=== PATIENT | male | born 1955 | race Caucasian/White ===

== ENCOUNTER 2022-08-14 11:14 | Inpatient (IN) ==
[2022-08-14] MEDS ORDERED: 0.9 % SODIUM CHLORIDE 1,000 ML IV ONE ×2 (11:24→12:44)
[2022-08-14] MEDS ORDERED: ACETAMINOPHEN 325 MG TABLET PO ONE (11:28)
[2022-08-14 11:36] LABS: POC Calcium, Ionized 1.19 (1.16-1.32); POC Creatinine 0.4 (0.6-1.2); POC Potassium 3.8 (3.3-5.1)
--- NOTE | 2022-08-14 12:22 | XRay Report ---
INDICATION: fever dyspnea, poss pna TECHNIQUE: AP chest x-ray COMPARISON: Previous chest x-rays dated 01/25/2018, 12/26/2014 FINDINGS: Lungs:There is a focal mass in the left midlung, unchanged since 01/22/2018 and 12/26/2014. This is considered benign There are diffuse right lung infiltrates consistent with pneumonia. Atypical pneumonias should be considered. There is no dense consolidation. Follow-up radiographs are recommended. Heart, vascular:No significant cardiomegaly. Pulmonary vascularity is normal. No pulmonary edema or pulmonary congestion Mediastinum, sidra:No mediastinal widening. No hilar mass Pleura:No pleural fluid. No pleural-based mass or calcification Skeletal:Negative. IMPRESSION: 1. Diffuse right lung infiltrates consistent with pneumonia 2. Follow-up radiographs recommended 3. Stable benign nodule in left midlung Interpreted and Authenticated by: Jose Luis Echavarria 08/14/22
[2022-08-14] MEDS ORDERED: cefTRIAXone 1 GM VIAL IV ONE (12:34)
[2022-08-14] MEDS ORDERED: AZITHROMYCIN 500 MG in DEXTROSE 5% IN WATER 250 ML IV ONE (12:34)
--- NOTE | 2022-08-14 12:50 | Emergency Department Note ---
HPI General Chief complaint: Cold/Flu Symptoms Stated complaint: Cough Time Seen by Provider: 08/14/22 11:22 Source: patient Mode of arrival: wheelchair Limitations: no limitations History of Present Illness HPI Narrative: Narrative: 67-year-old male presents to the emergency department complaint of cough congestion generalized weakness and not feeling well patient states that he was seen by his primary care doctor Dr. Barros in about 2 weeks ago and was started on antibiotics filled them about 2 3 days ago but is still not getting any better. So they called the office and recommended coming here as they do not want to continue more antibiotics status post family was worried he was needing. He has had cough congestion has been having quite a productive cough of green mucus. Denying any other symptoms otherwise has no chest pain. Just complaining of just some mild cough and congestion no real shortness of breath. He has had off-and-on fevers. He does not remember what antibiotic he previously was taken Related Data Home Medications Medication Instructions Recorded Confirmed clopidogrel 75 mg tablet 75 mg PO QDAY 04/25/19 08/14/22 gabapentin 300 mg capsule 300 mg PO TIDP PRN Pain 08/14/22 08/14/22 Previous Rx's Medication Instructions Recorded levetiracetam 500 mg tablet 500 mg PO BID #180 tabs 01/25/18 olmesartan 40 mg tablet 40 mg PO QDAY #90 tabs 01/25/18 Allergies Allergy/AdvReac Type Severity Reaction Status Date / Time Penicillins AdvReac Unknown Skin Verified 08/14/22 11:15 reaction, nausea, vomiting, diarrhea Review of Systems ROS ROS Narrative: Narrative: All systems ED: reviewed and negative except as stated. [facility] Narrative Patient History Narrative: Narrative: Medical/Surgical/Family History All Active Problems (Updated 08/14/22 @ 14:09 by Kale Johnson DO) Epileptic seizure (Chronic) Cerebral artery occlusion with cerebral infarction (Chronic) CVA (cerebral vascular accident) (Chronic) COPD (chronic obstructive pulmonary disease) (Chronic) Confusion (Chronic) Convulsion, febrile (Chronic) Essential hypertension (Chronic) Peptic ulcer disease (Chronic 11/20/08) Lung nodule (Chronic 02/07/05) Sinusitis, chronic (Chronic) Thrombosis/embolism, venous (Chronic) Epilepsy (Chronic) Hepatitis C (Chronic) Recent unexplained weight loss (Chronic) Wrist sprain (Chronic) Bleeding (Chronic) Elevated PSA (Chronic) Pneumonia (Acute) Sepsis (Acute) Acute hyponatremia (Acute) Medical History Cerebral artery occlusion with cerebral infarction Confusion Convulsion, febrile COPD (chronic obstructive pulmonary disease) CVA (cerebral vascular accident) Elevated PSA Epilepsy Epileptic seizure Essential hypertension Long standing. Last reviewed by a Word Processing Supervisor in 2003. Hepatitis C serotype 3a, completed 2017, viral load 0 Hyposmolality and/or hyponatremia Influenza A Lung nodule (02/07/05) Followed by Dr. Campuzano, said to be stable Peptic ulcer disease (11/20/08) Gastro jejunal, acute Sinusitis, chronic Thrombosis/embolism, venous UTI (urinary tract infection) Surgical History History of angiography (09/07/19) History of bilateral cataract extraction History of endarterectomy common femoral artery - left Family History Sister Malignant neoplasm of ovary Father Cerebrovascular accident (CVA) Mother Aneurysm, Onset Age: 63 Hypertension Brother Non Hodgkin's lymphoma, Onset Age: 70 Other Cancer Social History Smoking Status: Former smoker Alcohol Intake Frequency: 0-2 drinks per day Substance Use: former substance user and marijuana Exam Narrative Narrative: Narrative: Vital signs noted General: Awake. Alert. No distress. Skin: Warm. Dry. No rash. HEENT: NCAT. PERRL. EOMI. No conjunctivitis. Membranes moist. Neck: Good ROM. No meningeal signs. No stridor. Cardiovascular: Tachycardic but regular.. Respiratory: No respiratory distress. Rhonchi heard in the right base otherwise normal breath sounds bilaterally. Gastrointestinal: Abdomen soft. No tenderness. No distention. Back: No deformity. No CVAT. Musculoskeletal: No tenderness. No swelling. No erythema. No edema. Good peripheral pulses x 4 Neurological: No focal neurological deficits observed. General Limitations: no limitations Course Vital Signs Vital signs: Vital Signs Temperature 100.1 F H 08/14/22 11:14 Pulse Rate 128 H 08/14/22 11:14 Respiratory Rate 25 H 08/14/22 11:14 Blood Pressure 109/82 08/14/22 11:14 Pulse Oximetry (%) 91 08/14/22 11:14 Oxygen Delivery Method Room Air 08/14/22 11:14 Temperature 100.1 F H 08/14/22 11:42 Pulse Rate 91 H 08/14/22 13:27 Respiratory Rate 18 08/14/22 13:27 Blood Pressure 132/78 08/14/22 13:27 Pulse Oximetry (%) 95 08/14/22 13:27 Oxygen Delivery Method Room Air 08/14/22 13:27 MDM MDM Narrative Medical decision making narrative: Narrative: Patient resents to the Emergency Department with shortness of breath. Reveal possible pneumonia and sepsis. Very low suspicion for PE or acute coronary syndrome as he has no chest pain. He has no risk factors for PE. I was worried about possibly sepsis most likely secondary to pneumonia based on his symptoms. Did get a Amina which is an influenza and COVID swabs these were interpreted by myself is negative. I also got CBC, chemistry, procalcitonin as well as urinalysis as well as blood cultures. I also ordered a chest x-ray. This was personally interpreted by myself and I see a right lower lobe infiltrate otherwise no other acute findings. Patient was given Tylenol to help with his fever. He also did meet criteria for severe sepsis as he also had a VBG lactate I interpreted it as an elevated lactate of 3.81 and a pH of 7.36 CO2 is normal at 40. I went ahead and gave patient the 30 mL/kg of IV fluids based on patient's ideal body weight of 68 kg. I also started patient on azithromycin IV as well as IV Rocephin to cover patient's most likely community-acquired pneumonia. I did read the radiology interpretation which does show right lower lobe pneumonia as well as a mass in the left lobe. Mass in the left lobe is not needed to be dealt with at this time and can be taken care of in the outpatient setting. Still awaiting labs analysis at this time patient most likely will need to be admitted. Patient does meet criteria for severe sepsis but there is no signs of septic shock as his vital signs have been stable. He is tachycardic but blood pressure has been normal. Patient's labs show a positive lactic acid. His CBC also interpreted by myself shows a white blood cell count of 17.9 hemoglobin stable at 11.4 does have a left shift. I also got a procalcitonin interpreted by myself is 0.35 which is elevated. Chemistry does show a hyponatremia. Patient will need to be admitted. I spoke with Dr. Norman the hospitalist who has agreed to admit the patient. Patient can be admitted in fair condition. Total critical care time of 31 min including performance of history and physical exam, review of results, re-examinations, time spent documenting, order processing specialist, review of old records, discussions with patient and family, discussions with fashion consultant sales(s), discussion with admitting physician, completion of admission/transfer paperwork. This does not include time for any separately documented procedures. Sepsis Sepsis Identified: Yes Time Zero: 1200 Lab Data 08/14/22 11:30 Labs: Lab Results 08/14/22 08/14/22 Range/Units 11:28 11:32 POC Hct 38.0 L (41-55) POC VBG pH 7.36 (7.32-7.42) POC VBG pCO2 at Temp 40.9 L (41-51) POC VBG pO2 24 L (25-40) POC VBG HCO3 23.3 L (24-28) POC VBG Total CO2 25.0 (25-29) POC Venous O2 Sat 40.0 (40-70) POC VBG Base Excess -2.0 (-2-2) VBG Lactic Acid 3.8 H (0.5-2) POC Sodium 127 L (133-145) POC Potassium 3.8 (3.3-5.1) POC Chloride 91 L (96-108) POC Total CO2 24.0 (22-30) POC BUN 7 (6-20) POC Creatinine 0.4 L (0.6-1.2) POC Glucose 143 H (70-105) POC WB Ioniz Calcium 1.19 (1.16-1.32) ED POC Tests ED POC Tests: INGE - Influenza A Negative INGE - Influenza B Negative INGE - SARS Antigen Negative Discharge Plan Patient/Caregiver Discharge Instructions Pt seen by BISCUITWARE BRUSHER/PA only: No Clinical Impression: Pneumonia, Sepsis, Acute hyponatremia Activity: increase activity as tolerated Patient Disposition: Xfer As Inpt ([facility]) Condition: Fair Follow up with: Reese James MD [Primary Care Provider] - Prescriptions: No Action levetiracetam 500 mg tablet 500 mg PO BID Qty: 180 3RF olmesartan 40 mg tablet 40 mg PO QDAY Qty: 90 3RF clopidogrel 75 mg tablet 75 mg PO QDAY gabapentin 300 mg capsule 300 mg PO TIDP PRN (Reason: Pain)
[2022-08-14 14:49] LABS: Basophils # (Auto) 0.07 K/mcL (0.00-0.30); Basophils % (Auto) 0.4 % (0.0-2.0); Eosinophils # (Auto) 0.11 K/mcL (0.00-0.70); Eosinophils % (Auto) 0.6 % (0.0-7.0); Hematocrit 35.4 % (40.1-51.0); Hemoglobin 11.4 g/dL (13.7-17.5); Lymphocytes # (Auto) 1.65 K/mcL (1.50-4.80); Lymphocytes % (Auto) 9.2 % (15.5-49.0); Mean Cell Volume 85.9 fL (80.0-100.0); Mean Corpuscular HGB Conc 32.2 g/dL (31.0-36.0); Mean Platelet Volume 9.6 fL (8.8-12.5); Monocytes % (Auto) 10.1 % (1.0-12.0); Neutrophils % (Auto) 78.8 % (38.0-78.0); Platelet Count 547 K/mcL (140-440); RBC 4.12 M/mcL (4.63-6.08); Red Cell Distribution Width 14.2 % (11.5-14.5); WBC 17.9 K/mcL (4.5-11.0)
--- NOTE | 2022-08-14 14:55 | Internal Med History&Physical ---
HPI History of Present Illness Patient information: Note initiated : 08/14/22 at 2:54 pm Service Date, if different from initiated Date: [] Patient: Ketan Crowe 67 y/o M admitted on for Cough. Chief Complaint: [] History of present illness: Mr. Crowe is a 67 year old male with a history of hypertension, stroke, seizure disorder, hepatitis C infection, pulmonary nodules, prior smoker with a approximately 61-jeob-guoj smoking history who presented to the emergency department for cough and generalized weakness. The patient says that he began to feel ill about 2 months ago then developed a productive cough, generalized weakness and subjective fevers. The patient saw his primary care provider and was prescribed clarithromycin for pneumonia. The patient's symptoms did not improve and he was told to present to the emergency department for further evaluation and management. In the emergency department, patient had a high- grade temperature, tachycardia and tachypnea. The patient was initially hypotensive in the emergency department and that responded to IV fluid. Routine blood work showed leukocytosis and hyponatremia. A chest x-ray showed diffuse right lung infiltrates consistent with pneumonia, stable benign nodule in the left midlung. The patient was given ceftriaxone and azithromycin. Hospital medicine was consulted for admission. Review of systems Constitutional: Positive for subjective fevers, fatigue and weight loss Eyes: no vision changes or pain Cardiovascular: Right-sided chest pain with inspiration no palpitations Respiratory: Positive for productive cough and dyspnea Gastrointestinal: no abdominal pain, no nausea, vomiting, or diarrhea Genitourinary: no dysuria or difficulty voiding Musculoskeletal: Positive for pain over right clavicle from recent clavicular fracture. Integumentary: no skin lesion or wound Neurological: no focal weakness or numbness Psychiatric: no anxiety or depression Physical exam Head: Atraumatic, normal inspection. Eyes: normal appearance, no scleral icterus. Neck: full ROM Respiratory: On room air, no respiratory distress, diffuse right-sided B-lines on POCUS exam, left-sided A-line pattern on POCUS exam. Cardiovascular: normal rate and rhythm, S1, S2. GI/Abdominal: soft, nontender, no guarding. Extremities: Tenderness over right clavicle, otherwise full range of motion in all extremities. Neurological: CN II-XII intact, intact motor, intact sensation. Psychiatric: normal mood. Skin: warm, normal color PFSH PFSH All Active Problems (Updated 08/14/22 @ 14:09 by Kale Johnson DO) Epileptic seizure (Chronic) Cerebral artery occlusion with cerebral infarction (Chronic) CVA (cerebral vascular accident) (Chronic) COPD (chronic obstructive pulmonary disease) (Chronic) Confusion (Chronic) Convulsion, febrile (Chronic) Essential hypertension (Chronic) Peptic ulcer disease (Chronic 11/20/08) Lung nodule (Chronic 02/07/05) Sinusitis, chronic (Chronic) Thrombosis/embolism, venous (Chronic) Epilepsy (Chronic) Hepatitis C (Chronic) Recent unexplained weight loss (Chronic) Wrist sprain (Chronic) Bleeding (Chronic) Elevated PSA (Chronic) Pneumonia (Acute) Sepsis (Acute) Acute hyponatremia (Acute) Medical History Cerebral artery occlusion with cerebral infarction Confusion Convulsion, febrile COPD (chronic obstructive pulmonary disease) CVA (cerebral vascular accident) Elevated PSA Epilepsy Epileptic seizure Essential hypertension Long standing. Last reviewed by a Photogrammetrist in 2003. Hepatitis C serotype 3a, completed [facility] 2017, viral load 0 Hyposmolality and/or hyponatremia Influenza A Lung nodule (02/07/05) Followed by Dr. Campuzano, said to be stable Peptic ulcer disease (11/20/08) Gastro jejunal, acute Sinusitis, chronic Thrombosis/embolism, venous UTI (urinary tract infection) Surgical History History of angiography (09/07/19) History of bilateral cataract extraction History of endarterectomy common femoral artery - left Family History Sister Malignant neoplasm of ovary Father Cerebrovascular accident (CVA) Mother Aneurysm, Onset Age: 63 Hypertension Brother Non Hodgkin's lymphoma, Onset Age: 70 Other Cancer Social History household members: other lives independently: Yes education level: high school occupational status: employed and retired occupation: Maintenance for [employer]. pets and animals: Yes smoking status: Former smoker quit date: 08/06/21 alcohol intake frequency: 0-2 drinks per day substance use type: former substance user and marijuana seatbelt use: always working smoke detector in home: Yes carbon monox detector in home: Yes MEDS/ALLERGIES Home Medications and Allergies Home Medications Medication Instructions Recorded Confirmed Type levetiracetam 500 mg tablet 500 mg PO BID #180 tabs 01/25/18 08/14/22 Rx olmesartan 40 mg tablet 40 mg PO QDAY #90 tabs 01/25/18 08/14/22 Rx clopidogrel 75 mg tablet 75 mg PO QDAY 04/25/19 08/14/22 History gabapentin 300 mg capsule 300 mg PO TIDP PRN Pain 08/14/22 08/14/22 History Allergies Allergy/AdvReac Type Severity Reaction Status Date / Time Penicillins AdvReac Unknown Skin Verified 08/14/22 11:15 reaction, nausea, vomiting, diarrhea EXAM Constitutional Vitals: Temp Pulse Resp BP Pulse Ox O2 Del Method 100.1 F H 90 18 111/76 97 Room Air 08/14/22 11:42 08/14/22 14:31 08/14/22 13:27 08/14/22 14:31 08/14/22 14:31 08/14/22 13:27 DATA Data Completed and Pending Labs: Labs from last 24 hours 08/14/22 08/14/22 08/14/22 11:32 11:30 11:30 WBC 17.9 H RBC 4.12 L Hgb 11.4 L Hct 35.4 L POC Hct 38.0 L MCV 85.9 MCH 27.7 MCHC 32.2 RDW 14.2 Plt Count 547 H MPV 9.6 Immature Gran % (Auto) 0.9 H Neut % (Auto) 78.8 H Lymph % (Auto) 9.2 L [place] % (Auto) 10.1 Eos % (Auto) 0.6 Baso % (Auto) 0.4 Lymph # (Auto) 1.65 [place] # (Auto) 1.80 H Eos # (Auto) 0.11 Baso # (Auto) 0.07 Immature Gran # 0.17 H Absolute Neutrophils 14.11 H POC VBG pH POC VBG pCO2 at Temp POC VBG pO2 POC VBG HCO3 POC VBG Total CO2 POC Venous O2 Sat POC VBG Base Excess VBG Lactic Acid POC Sodium 127 L POC Potassium 3.8 POC Chloride 91 L POC Total CO2 24.0 POC BUN 7 POC Creatinine 0.4 L POC Glucose 143 H POC WB Ioniz Calcium 1.19 Procalcitonin 0.35 H 08/14/22 11:28 WBC RBC Hgb Hct POC Hct MCV MCH MCHC RDW Plt Count MPV Immature Gran % (Auto) Neut % (Auto) Lymph % (Auto) [place] % (Auto) Eos % (Auto) Baso % (Auto) Lymph # (Auto) [place] # (Auto) Eos # (Auto) Baso # (Auto) Immature Gran # Absolute Neutrophils POC VBG pH 7.36 POC VBG pCO2 at Temp 40.9 L POC VBG pO2 24 L POC VBG HCO3 23.3 L POC VBG Total CO2 25.0 POC Venous O2 Sat 40.0 POC VBG Base Excess -2.0 VBG Lactic Acid 3.8 H POC Sodium POC Potassium POC Chloride POC Total CO2 POC BUN POC Creatinine POC Glucose POC WB Ioniz Calcium Procalcitonin A/P Narrative A/P Narrative: Assessment: 67 year old male with a history of hypertension, stroke, seizure disorder, hepatitis C infection, pulmonary nodules, prior smoker with a approximately 17-[id number]-[id number] smoking history admitted for sepsis secondary to community-acquired pneumonia. INGE rapid antigen test was negative for SARS-CoV-2, influenza A, influenza B. #Sepsis secondary to community-acquired pneumonia #Moderate hyponatremia #Malnourishment, likely moderate #Normocytic anemia #Thrombocytosis #Essential hypertension #History of stroke #History of hepatitis C infection #Pulmonary nodules, stable #History of tobacco use disorder with approximately 20-[id number]-[id number] smoking history Plan -Ceftriaxone and azithromycin IV for now, treat pneumonia for 5 to 7 days. -Sputum Gram stain and culture. -MRSA nasal PCR. -PCR testing for SARS-CoV-2, influenza, RSV. -Follow blood cultures x2. -Continuous IV fluid, received 30 mL/kg in the ED. -Repeat lactic acid until downtrending. -Follow WBC and sodium level. -Home medication reconciliation, continue important meds. -DVT prophylaxis: Lovenox Time Spent With Patient Time: Total time spent is greater than 50% in coordination of care (as documented) at patient's floor/unit and/or counseling patient:
[2022-08-14] MEDS ORDERED: IBUPROFEN 600 MG TABLET PO PRN (15:42)
[2022-08-14] MEDS ORDERED: ONDANSETRON 4 MG/2 ML VIAL IV PRN (15:42)
[2022-08-14] MEDS: 0.9 % SODIUM CHLORIDE 1,000 ML IV SCH (15:59)
[2022-08-14] MEDS: 0.9 % SODIUM CHLORIDE 10 ML SYRINGE IV SCH (20:40)
[2022-08-14] MEDS: DOCUSATE SODIUM 100 MG CAPSULE PO SCH (20:48)
[2022-08-14] MEDS: levETIRAcetam 500 MG TABLET PO SCH (20:48)
[2022-08-14] MEDS: SENNOSIDES 1 TABLET PO SCH (20:48)
[2022-08-14] MEDS: ACETAMINOPHEN 325 MG TABLET PO PRN (21:19)
[2022-08-15] MEDS: 0.9 % SODIUM CHLORIDE 1,000 ML IV SCH (01:24)
[2022-08-15] MEDS: 0.9 % SODIUM CHLORIDE 10 ML SYRINGE IV SCH ×3 (05:30→20:59)
[2022-08-15 06:32] LABS: Basophils # (Auto) 0.05 K/mcL (0.00-0.30); Basophils % (Auto) 0.4 % (0.0-2.0); Eosinophils # (Auto) 0.35 K/mcL (0.00-0.70); Eosinophils % (Auto) 2.8 % (0.0-7.0); Hematocrit 27.1 % (40.1-51.0); Hemoglobin 8.9 g/dL (13.7-17.5); Lymphocytes # (Auto) 0.99 K/mcL (1.50-4.80); Lymphocytes % (Auto) 7.9 % (15.5-49.0); Mean Cell Volume 85.8 fL (80.0-100.0); Mean Corpuscular HGB Conc 32.8 g/dL (31.0-36.0); Mean Platelet Volume 9.4 fL (8.8-12.5); Monocytes # (Auto) 1.31 K/mcL (0.10-0.90); Monocytes % (Auto) 10.5 % (1.0-12.0); Platelet Count 423 K/mcL (140-440); RBC 3.16 M/mcL (4.63-6.08); Red Cell Distribution Width 14.2 % (11.5-14.5); WBC 12.5 K/mcL (4.5-11.0)
[2022-08-15 06:57] LABS: ALT/SGPT 9 U/L (<40); AST/SGOT 16 U/L (<40); Albumin 2.6 gm/dL (3.2-5.2); Albumin/Globulin Ratio 0.8 (1.0-2.3); Alkaline Phosphatase 71 U/L (39-117); Bilirubin,Direct < 0.2 mg/dL (0-0.3); Bilirubin,Total 0.4 mg/dL (0.1-1.0); Blood Urea Nitrogen 7 mg/dL (8-23); Calcium 8.5 mg/dL (8.6-10.4); Carbon Dioxide 23 mmol/L (22-30); Chloride 98 mmol/L (96-108); Globulin 3.1 gm/dL (2.2-3.7); Glomerular Filtration Rate 136; Glucose 79 mg/dL (70-105); Lactate Dehydrogenase 180 U/L (135-225); Phosphorous 2.9 mg/dL (2.5-4.5); Triglycerides 77 mg/dL (<150); Uric Acid 2.2 mg/dL (2.5-8.0)
[2022-08-15] MEDS ORDERED: ALBUTEROL SULFATE 2.5 MG/3 ML NEBULIZER NEB PRN (07:52)
[2022-08-15] MEDS: KETOROLAC 15 MG/ML VIAL IV SCH ×3 (08:38→20:58)
[2022-08-15] MEDS: DOCUSATE SODIUM 100 MG CAPSULE PO SCH ×2 (08:39→21:15)
[2022-08-15] MEDS: levETIRAcetam 500 MG TABLET PO SCH ×2 (08:39→21:15)
[2022-08-15] MEDS: CLOPIDOGREL 75 MG TABLET PO SCH (08:39)
[2022-08-15] MEDS: ENOXAPARIN 40 MG/0.4 ML SYRINGE SQ SCH (08:39)
[2022-08-15] MEDS ORDERED: cefTRIAXone 1 GM VIAL IV SCH (09:00)
[2022-08-15] MEDS: AZITHROMYCIN 500 MG in DEXTROSE 5% IN WATER 250 ML IV SCH (09:59)
[2022-08-15] MEDS ORDERED: POTASSIUM CHLORIDE 20 MEQ TABLET PO ONE (10:20)
[2022-08-15] MEDS ORDERED: MAGNESIUM SULFATE 2 GM/50 ML BAG IV ONE (10:20)
--- NOTE | 2022-08-15 10:20 | Internal Med Progress Note ---
SUBJECTIVE Subjective Patient information: Note initiated : 08/15/22 at 10:18 am Service Date, if different from initiated Date: [] Patient: Ketan Crowe 67 y/o M admitted on 08/14/22 for Cough. Chief Complaint: [] Interval history: Mr. Crowe is a 67 year old male with a history of hypertension, stroke, seizure disorder, hepatitis C infection, pulmonary nodules, prior smoker with a approximately 73-gwqt-nlrf smoking history who presented to the emergency department for cough and generalized weakness. The patient says that he began to feel ill about 2 months ago then developed a productive cough, generalized weakness and subjective fevers. The patient saw his primary care provider and was prescribed clarithromycin for pneumonia. The patient's symptoms did not improve and he was told to present to the emergency department for further evaluation and management. In the emergency department, patient had a high- grade temperature, tachycardia and tachypnea. The patient was initially hypotensive in the emergency department and that responded to IV fluid. Routine blood work showed leukocytosis and hyponatremia. A chest x-ray showed diffuse right lung infiltrates consistent with pneumonia, stable benign nodule in the left midlung. The patient was given ceftriaxone and azithromycin. Hospital medicine was consulted for admission. 08/15 No significant events overnight, yesterday evening the patient's MRSA PCR was negative, PCR testing for SARS-CoV-2, influenza and RSV also negative. Patient feels better today from a respiratory standpoint. Afebrile overnight, leukocytosis improving. Lactic acidosis resolved when rechecked. Sodium level improving. Replaced potassium and magnesium. Continuing ceftriaxone and IV az ithromycin today, potentially transition to oral antibiotics tomorrow. Added DuoNebs and albuterol as needed as the patient is wheezing somewhat. Discontinued IV fluid. Physical exam Head: Atraumatic, normal inspection. Eyes: normal appearance, no scleral icterus. Neck: full ROM Respiratory: On room air, inspiratory and expiratory wheezes most notably in the right lung duran, no signs of respiratory distress. Cardiovascular: normal rate and rhythm, S1, S2. GI/Abdominal: soft, nontender, no guarding. Extremities: Tenderness over right clavicle, otherwise full range of motion in all extremities. Neurological: CN II-XII intact, intact motor, intact sensation. Psychiatric: normal mood. Skin: warm, normal color Constitutional Vitals: Vital Signs Temp Pulse Resp BP Pulse Ox O2 Del Method O2 Flow Rate 98.4 F 95 H 20 121/76 95 Room Air 0 08/15/22 07:09 08/15/22 07:19 08/15/22 07:19 08/15/22 07:09 08/15/22 07:19 08/15/22 07:19 08/15/22 05:56 Period Temp Pulse Resp BP Sys/Juan Pulse Ox O2 Del Method O2 Flow Rate Last 24 Hr 98.1 F-100.1 F 82-128 15-32 91-133/72-84 91-98 Room Air-Room Air 0-0 Intake and Output 08/14/22 08/15/22 08/15/22 19:59 03:59 11:59 Intake Total 2350 942 240 Output Total 300 750 625 Balance 2049 192 -385 Weight 53.887 kg Intake & Output: Intake & Output 08/14/22 08/15/22 08/15/22 19:59 03:59 11:59 Intake Total 2350 942 240 Output Total 300 750 625 Balance 2049 192 -385 Weight 53.887 kg Intake: IV 2250 942 Sodium Chloride 0.9% 1,000 ml @ 2000 942 100 mls/hr IV .Q10H [facility] Rx#: [id number] Zithromax 500 mg In Dextrose 5% 250 in Water 250 ml @ 250 mls/hr IV ONCE ONE Rx#:[id number] Oral 100 240 Output: Void Amount 300 750 625 Other: Meal Breakfast Percent of Meal Consumed 25% Feeding Ability Independent Urine Appearance Clear Clear Clear Urine Color Dark Yellow Dark Yellow Bright Yellow Urine Odor Normal Normal Normal Stool Size Smear Stool Color Brown # Voids 1 # Bowel Movements 1 OBJ DATA Labs 08/15/22 05:32 08/15/22 05:32 Labs: Abnormal Lab Results 08/15/22 08/15/22 08/14/22 05:32 05:32 11:32 WBC 12.5 H RBC 3.16 L Hgb 8.9 L Hct 27.1 L POC Hct 38.0 L Plt Count Immature Gran % (Auto) 1.4 H Neut % (Auto) Lymph % (Auto) 7.9 L Lymph # (Auto) 0.99 L Gillespie # (Auto) 1.31 H Immature Gran # 0.18 H Absolute Neutrophils 9.58 H POC VBG pCO2 at Temp POC VBG pO2 POC VBG HCO3 VBG Lactic Acid POC Sodium 127 L Sodium 129 L POC Chloride 91 L BUN 7 L Creatinine 0.3 L POC Creatinine 0.4 L POC Glucose 143 H Uric Acid 2.2 L Calcium 8.5 L Magnesium 1.5 L Total Protein 5.7 L Albumin 2.6 L Albumin/Globulin Ratio 0.8 L Procalcitonin 08/14/22 08/14/22 08/14/22 11:30 11:30 11:28 WBC 17.9 H RBC 4.12 L Hgb 11.4 L Hct 35.4 L POC Hct Plt Count 547 H Immature Gran % (Auto) 0.9 H Neut % (Auto) 78.8 H Lymph % (Auto) 9.2 L Lymph # (Auto) Gillespie # (Auto) 1.80 H Immature Gran # 0.17 H Absolute Neutrophils 14.11 H POC VBG pCO2 at Temp 40.9 L POC VBG pO2 24 L POC VBG HCO3 23.3 L VBG Lactic Acid 3.8 H POC Sodium Sodium POC Chloride BUN Creatinine POC Creatinine POC Glucose Uric Acid Calcium Magnesium Total Protein Albumin Albumin/Globulin Ratio Procalcitonin 0.35 H Meds: Medications Acetaminophen (Acetaminophen 325 Mg Tablet) 650 mg PO Q6HP PRN; Protocol PRN Reason: Per Pain Protocol/Fever > 101 Last Admin: 08/14/22 21:19 Dose: 650 mg Albuterol Sulfate (Albuterol Sulfate 2.5 Mg/3 Ml Nebulizer) 2.5 mg NEB Q2HP PRN PRN Reason: Shortness Of Breath Albuterol/Ipratropium (Ipratropium/Albuterol 3 Ml Ampul.Neb) 3 ml NEB Q6HRT [facility] Ceftriaxone Sodium (Ceftriaxone 1 Gm Vial) 1 gm IV DAILY [facility]; Protocol Last Admin: 08/15/22 08:39 Dose: 1 gm Clopidogrel Bisulfate (Clopidogrel 75 Mg Tablet) 75 mg PO QDAY [facility] Last Admin: 08/15/22 08:39 Dose: 75 mg Docusate Sodium (Docusate Sodium 100 Mg Capsule) 100 mg PO BID [facility] Last Admin: 08/15/22 08:39 Dose: 100 mg Enoxaparin Sodium (Enoxaparin 40 Mg/0.4 Ml Syringe) 40 mg SQ DAILY [facility] Last Admin: 08/15/22 08:39 Dose: 40 mg Azithromycin 500 mg/ Dextrose 250 mls @ 250 mls/hr IV Q24H [facility]; Protocol Stop: 08/16/22 10:59 Last Admin: 08/15/22 09:59 Dose: 250 mls/hr Ketorolac Tromethamine (Ketorolac 15 Mg/Ml Vial) 15 mg IV Q6H [facility] Stop: 08/16/22 02:01 Last Admin: 08/15/22 08:38 Dose: 15 mg Levetiracetam (Levetiracetam 500 Mg Tablet) 500 mg PO BID [facility] Last Admin: 08/15/22 08:39 Dose: 500 mg Ondansetron HCl (Ondansetron 4 Mg/2 Ml Vial) 4 mg IV Q6HP PRN PRN Reason: Nausea And Vomiting Senna (Sennosides 1 Tablet) 2 tab PO HS [facility] Last Admin: 08/14/22 20:48 Dose: 2 tab Sodium Chloride (0.9 % Sodium Chloride 10 Ml Syringe) 10 ml IV Q8 [facility] Last Admin: 08/15/22 05:30 Dose: Not Given A/P Narrative A/P Narrative: Assessment: 67 year old male with a history of hypertension, stroke, seizure disorder, hepatitis C infection, pulmonary nodules, prior smoker with a a pproximately 61-npkd-jnao smoking history admitted for sepsis secondary to community-acquired pneumonia. #Sepsis secondary to community-acquired pneumonia #Moderate hyponatremia #Malnourishment, likely moderate #Normocytic anemia #Essential hypertension #History of stroke #History of hepatitis C infection #Pulmonary nodules, stable #Recent right clavicular fracture #History of tobacco use disorder with approximately 82-pksa-xwby smoking history Plan -Ceftriaxone and azithromycin IV for now, treat pneumonia for 5 to 7 days. -Sputum Gram stain and culture if able to collect -Follow blood cultures x2: NGTD -DuoNebs every 6 hours and albuterol nebs as needed. -Discontinue IV fluid. -Tylenol and IV Toradol for pain at right clavicle. -Follow WBC and sodium level. -Continue home Plavix and Keppra, holding home losartan for now. -DVT prophylaxis: Lovenox -CODE STATUS: Full -Disposition: Home when stable, possibly tomorrow. Time Spent With Patient Time: Total time spent is greater than 50% in coordination of care (as documented) at patient's floor/unit and/or counseling patient: QUALITY VTE Deep Vein Thrombosis/Pulmonary Embolism Present on Admission: No
[2022-08-15] MEDS: IPRATROPIUM/ALBUTEROL 3 ML AMPUL.NEB NEB SCH ×2 (13:26→18:01)
[2022-08-15 14:02] LABS: Appearance,Urine CLEAR (Clear); Bilirubin,Urine NEGATIVE (Negative); Color,Urine LT. YELLOW; Culture Indicated,Urine No; Glucose,Urine (UA) NEGATIVE (Negative); Ketones,Urine NEGATIVE (Negative); Leukocyte Esterase,Urine NEGATIVE /uL (Negative); Nitrate,Urine NEGATIVE (Negative); Protein,Urine NEGATIVE (Negative); Urine Blood NEGATIVE ery/mcL (Negative); Urobilinogen,Urine Normal
[2022-08-15] MEDS: SENNOSIDES 1 TABLET PO SCH (21:15)
[2022-08-15] MEDS: ACETAMINOPHEN 325 MG TABLET PO PRN (21:29)
[2022-08-16] MEDS: IPRATROPIUM/ALBUTEROL 3 ML AMPUL.NEB NEB SCH ×4 (00:33→19:23)
[2022-08-16] MEDS: KETOROLAC 15 MG/ML VIAL IV SCH (02:13)
[2022-08-16 06:13] LABS: Basophils # (Auto) 0.06 K/mcL (0.00-0.30); Basophils % (Auto) 0.4 % (0.0-2.0); Eosinophils # (Auto) 0.43 K/mcL (0.00-0.70); Eosinophils % (Auto) 3.2 % (0.0-7.0); Hematocrit 26.1 % (40.1-51.0); Hemoglobin 8.6 g/dL (13.7-17.5); Lymphocytes # (Auto) 1.16 K/mcL (1.50-4.80); Lymphocytes % (Auto) 8.6 % (15.5-49.0); Mean Cell Volume 84.7 fL (80.0-100.0); Mean Platelet Volume 9.8 fL (8.8-12.5); Monocytes % (Auto) 10.3 % (1.0-12.0); Neutrophils % (Auto) 76.5 % (38.0-78.0); Platelet Count 422 K/mcL (140-440); RBC 3.08 M/mcL (4.63-6.08); Red Cell Distribution Width 14.3 % (11.5-14.5); WBC 13.6 K/mcL (4.5-11.0)
[2022-08-16 06:26] LABS: ALT/SGPT 10 U/L (<40); AST/SGOT 15 U/L (<40); Albumin 2.7 gm/dL (3.2-5.2); Albumin/Globulin Ratio 0.9 (1.0-2.3); Alkaline Phosphatase 74 U/L (39-117); Bilirubin,Direct < 0.2 mg/dL (0-0.3); Bilirubin,Total 0.2 mg/dL (0.1-1.0); Blood Urea Nitrogen 9 mg/dL (8-23); Calcium 8.3 mg/dL (8.6-10.4); Carbon Dioxide 23 mmol/L (22-30); Chloride 93 mmol/L (96-108); Globulin 3.1 gm/dL (2.2-3.7); Glomerular Filtration Rate 136; Glucose 93 mg/dL (70-105); Lactate Dehydrogenase 190 U/L (135-225); Phosphorous 3.4 mg/dL (2.5-4.5); Triglycerides 85 mg/dL (<150)
[2022-08-16] MEDS ORDERED: IOPAMIDOL 100 ML BOTTLE IV ONE (08:12)
[2022-08-16] MEDS: CLOPIDOGREL 75 MG TABLET PO SCH (08:19)
[2022-08-16] MEDS: DOCUSATE SODIUM 100 MG CAPSULE PO SCH ×2 (08:20→22:04)
[2022-08-16] MEDS: ENOXAPARIN 40 MG/0.4 ML SYRINGE SQ SCH (08:20)
[2022-08-16] MEDS: 0.9 % SODIUM CHLORIDE 10 ML SYRINGE IV SCH ×3 (08:21→22:04)
[2022-08-16] MEDS: CEFEPIME 2 GM VIAL IV SCH ×3 (08:21→22:02)
[2022-08-16] MEDS: levETIRAcetam 500 MG TABLET PO SCH ×2 (08:25→22:04)
--- NOTE | 2022-08-16 08:53 | Cat Scan Report ---
INDICATION: Pneumonia not responding to Ceftriaxone. COMPARISON: Previous chest x-rays dated 08/14/2022, 01/25/2018, 12/26/2014 TECHNIQUE: Axial contrast enhanced images through the chest. Sagittally and coronally reformatted images. MIP reformatted images. 75ml Isovue 370 injected intravenously. FINDINGS: Lungs, mediastinum, sidra: There is moderate centrilobular emphysema. Circumscribed left lung mass measures 19 mm x 19 mm x 18 mm. This is essentially stable and consistent with benign hamartoma. Left lung is otherwise negative. There is a large mediastinal and right hilar mass. This mass causes marked effacement of the superior vena cava. Superior vena cava remains patent. There is also effacement of the right pulmonary artery and right lower lobe pulmonary artery. Right mainstem bronchus is effaced and displaced. There is compression and occlusion of the distal right mainstem bronchus and segmental branches. This large mediastinal and right hilar mass is irregular in contour but measures approximately 10.5 x 9.2 x 8.2 cm. There is extensive right lung infiltrate with right upper lobe consolidation and marked right lower lobe volume loss. Appearance is consistent with extensive postobstructive pneumonia. Findings are consistent with malignancy and small cell lung cancer is considered most likely. There is mediastinal adenopathy. Largest node is in the superior mediastinum and measures 10 mm. This is probably metastatic. Left hilum is negative. There is a small right pleural effusion. Heart:No cardiomegaly. No pericardial effusion. There is coronary artery calcification Pleura:Small right pleural effusion Axilla, supraclavicular regions, chest wall:No pathologic axillary or supraclavicular adenopathy. Musculoskeletal:No thoracic compression fracture or lytic lesion. No sternal or rib lesion Upper Abdomen:Negative. No detectable hepatic or adrenal metastases. There are benign renal cysts bilaterally. IMPRESSION: 1. Very large mediastinal and right hilar mass. Appearance is consistent with neoplasm and small cell lung cancer is most likely 2. Effacement of the superior vena cava. This is narrowed but not completely occluded 3. Narrowing and encasement of the right pulmonary artery and segmental pulmonary arteries. Encasement and occlusion of the distal right bronchus and segmental bronchi 4. Extensive right lung abnormality consistent with postobstructive pneumonia 5. Mild mediastinal adenopathy 6. Small right pleural effusion 7. Benign mass in the left lung demonstrates long-term stability is consistent with hamartoma 8. Centrilobular emphysema The exam was performed using radiation dose optimization techniques including, but not limited to, automated exposure control, adjustment of the mA and/or kV according to patient size and use of iterative reconstruction technique. Interpreted and Authenticated by: Jose Luis Echavarria 08/16/22
[2022-08-16] MEDS: ACETAMINOPHEN 325 MG TABLET PO PRN ×2 (09:33→19:13)
[2022-08-16] MEDS: AZITHROMYCIN 500 MG in DEXTROSE 5% IN WATER 250 ML IV SCH (10:09)
--- NOTE | 2022-08-16 14:02 | Internal Med Progress Note ---
SUBJECTIVE Subjective Patient information: Note initiated : 08/16/22 at 2:00 pm Service Date, if different from initiated Date: [] Patient: Ketan Crowe 67 y/o M admitted on 08/14/22 for Cough. Chief Complaint: [] Interval history: Mr. Crowe is a 67 year old male with a history of hypertension, stroke, seizure disorder, hepatitis C infection, pulmonary nodules, prior smoker with a approximately 15-jwyj-fveo smoking history who presented to the emergency department for cough and generalized weakness. The patient says that he began to feel ill about 2 months ago then developed a productive cough, generalized weakness and subjective fevers. The patient saw his primary care provider and was prescribed clarithromycin for pneumonia. The patient's symptoms did not improve and he was told to present to the emergency department for further evaluation and management. In the emergency department, patient had a high- grade temperature, tachycardia and tachypnea. The patient was initially hypotensive in the emergency department and that responded to IV fluid. Routine blood work showed leukocytosis and hyponatremia. A chest x-ray showed diffuse right lung infiltrates consistent with pneumonia, stable benign nodule in the left midlung. The patient was given ceftriaxone and azithromycin. Hospital medicine was consulted for admission. 08/15 No significant events overnight, yesterday evening the patient's MRSA PCR was negative, PCR testing for SARS-CoV-2, influenza and RSV also negative. Patient feels better today from a respiratory standpoint. Afebrile overnight, leukocytosis improving. Lactic acidosis resolved when rechecked. Sodium level improving. Replaced potassium and magnesium. Continuing ceftriaxone and IV mallorie thromycin today, potentially transition to oral antibiotics tomorrow. Added DuoNebs and albuterol as needed as the patient is wheezing somewhat. Discontinued IV fluid. 08/16 The patient had a fever and high-grade temps overnight as well as an increase in white blood cell count today. Antibiotic treatment for pneumonia was changed from ceftriaxone to cefepime. CT chest with contrast was performed to evaluate for reasons of treatment failure and showed a large mediastinal and right hilar mass consistent with neoplasm. There was effacement of the superior vena cava, it was narrowed but not completely excluded. There was narrowing and encasement of the right pulmonary artery and segmental pulmonary arteries, encasement and occlusion of the distal right bronchus and segmental bronchi and extensive right lung abnormality consistent with postobstructive pneumonia. CT findings were explained to the patient. He wishes to discuss the findings with his before making any care decisions. Physical exam Head: Atraumatic, normal inspection. Eyes: normal appearance, no scleral icterus. Neck: full ROM Respiratory: On room air, inspiratory and expiratory wheezes most notably in the right lung duran, no signs of respiratory distress. Cardiovascular: normal rate and rhythm, S1, S2. GI/Abdominal: soft, nontender, no guarding. Extremities: Tenderness over right clavicle, otherwise full range of motion in all extremities. Neurological: CN II-XII intact, intact motor, intact sensation. Psychiatric: normal mood. Skin: warm, normal color Constitutional Vitals: Vital Signs Temp Pulse Resp BP Pulse Ox O2 Del Method O2 Flow Rate 99.6 F H 99 H 18 113/74 96 Room Air 0 08/16/22 12:00 08/16/22 13:10 08/16/22 13:10 08/16/22 12:00 08/16/22 13:10 08/16/22 13:10 08/16/22 13:10 Period Temp Pulse Resp BP Sys/Juan Pulse Ox O2 Del Method O2 Flow Rate Last 24 Hr 98.4 F-101.2 F 93-114 16-22 113-148/71-86 93-100 Room Air-Room Air 0-0 Intake and Output 08/16/22 08/16/22 08/16/22 03:59 11:59 19:59 Intake Total 1100 Output Total 150 550 Balance -150 550 Weight 53.297 kg Intake & Output: Intake & Output 08/16/22 08/16/22 08/16/22 03:59 11:59 19:59 Intake Total 1100 Output Total 150 550 Balance -150 550 Weight 53.297 kg Intake: IV 250 Zithromax 500 mg In Dextrose 5% 250 in Water 250 ml @ 250 mls/hr IV Q24H [facility] Rx#:[id number] Oral 850 Output: Void Amount 150 550 Other: Meal Breakfast Percent of Meal Consumed 75% Urine Appearance Clear Clear Urine Color Yellow Yellow Urine Odor Normal Normal OBJ DATA Labs 08/16/22 05:10 08/16/22 05:09 Labs: Abnormal Lab Results 08/16/22 08/16/22 08/15/22 05:10 05:09 05:32 WBC 13.6 H RBC 3.08 L Hgb 8.6 L Hct 26.1 L POC Hct Plt Count Immature Gran % (Auto) 1.0 H Neut % (Auto) Lymph % (Auto) 8.6 L Lymph # (Auto) 1.16 L Lamar # (Auto) 1.40 H Immature Gran # 0.13 H Absolute Neutrophils 10.38 H POC VBG pCO2 at Temp POC VBG pO2 POC VBG HCO3 VBG Lactic Acid POC Sodium Sodium 126 L 129 L POC Chloride Chloride 93 L BUN 7 L Creatinine 0.3 L 0.3 L POC Creatinine POC Glucose Uric Acid 2.0 L 2.2 L Calcium 8.3 L 8.5 L Magnesium 1.5 L Total Protein 5.8 L 5.7 L Albumin 2.7 L 2.6 L Albumin/Globulin Ratio 0.9 L 0.8 L Procalcitonin 08/15/22 08/14/22 08/14/22 05:32 11:32 11:30 WBC 12.5 H RBC 3.16 L Hgb 8.9 L Hct 27.1 L POC Hct 38.0 L Plt Count Immature Gran % (Auto) 1.4 H Neut % (Auto) Lymph % (Auto) 7.9 L Lymph # (Auto) 0.99 L Lamar # (Auto) 1.31 H Immature Gran # 0.18 H Absolute Neutrophils 9.58 H POC VBG pCO2 at Temp POC VBG pO2 POC VBG HCO3 VBG Lactic Acid POC Sodium 127 L Sodium POC Chloride 91 L Chloride BUN Creatinine POC Creatinine 0.4 L POC Glucose 143 H Uric Acid Calcium Magnesium Total Protein Albumin Albumin/Globulin Ratio Procalcitonin 0.35 H 08/14/22 08/14/22 11:30 11:28 WBC 17.9 H RBC 4.12 L Hgb 11.4 L Hct 35.4 L POC Hct Plt Count 547 H Immature Gran % (Auto) 0.9 H Neut % (Auto) 78.8 H Lymph % (Auto) 9.2 L Lymph # (Auto) Lamar # (Auto) 1.80 H Immature Gran # 0.17 H Absolute Neutrophils 14.11 H POC VBG pCO2 at Temp 40.9 L POC VBG pO2 24 L POC VBG HCO3 23.3 L VBG Lactic Acid 3.8 H POC Sodium Sodium POC Chloride Chloride BUN Creatinine POC Creatinine POC Glucose Uric Acid Calcium Magnesium Total Protein Albumin Albumin/Globulin Ratio Procalcitonin Meds: Medications Acetaminophen (Acetaminophen 325 Mg Tablet) 650 mg PO Q6HP PRN; Protocol PRN Reason: Per Pain Protocol/Fever > 101 Last Admin: 08/16/22 09:33 Dose: 650 mg Albuterol Sulfate (Albuterol Sulfate 2.5 Mg/3 Ml Nebulizer) 2.5 mg NEB Q2HP PRN PRN Reason: Shortness Of Breath Albuterol/Ipratropium (Ipratropium/Albuterol 3 Ml Ampul.Neb) 3 ml NEB Q6HRT [facility] Last Admin: 08/16/22 13:11 Dose: 3 ml Cefepime HCl (Cefepime 2 Gm Vial) 2 gm IV Q8H [facility]; Protocol Last Admin: 08/16/22 08:21 Dose: 2 gm Clopidogrel Bisulfate (Clopidogrel 75 Mg Tablet) 75 mg PO QDAY [facility] Last Admin: 08/16/22 08:19 Dose: 75 mg Docusate Sodium (Docusate Sodium 100 Mg Capsule) 100 mg PO BID [facility] Last Admin: 08/16/22 08:20 Dose: 100 mg Enoxaparin Sodium (Enoxaparin 40 Mg/0.4 Ml Syringe) 40 mg SQ DAILY [facility] Last Admin: 08/16/22 08:20 Dose: 40 mg Levetiracetam (Levetiracetam 500 Mg Tablet) 500 mg PO BID [facility] Last Admin: 08/16/22 08:25 Dose: 500 mg Ondansetron HCl (Ondansetron 4 Mg/2 Ml Vial) 4 mg IV Q6HP PRN PRN Reason: Nausea And Vomiting Senna (Sennosides 1 Tablet) 2 tab PO HS [facility] Last Admin: 08/15/22 21:15 Dose: 2 tab Sodium Chloride (0.9 % Sodium Chloride 10 Ml Syringe) 10 ml IV Q8 [facility] Last Admin: 08/16/22 08:21 Dose: 10 ml A/P Narrative A/P Narrative: Assessment: 67 year old male with a history of hypertension, stroke, seizure disorder, hepatitis C infection, pulmonary nodules, prior smoker with a approximately 64-bdrr-pscf smoking history admitted for sepsis secondary to community-acquired pneumonia. The patient initially improved with antibiotics but later developed fevers and increasing white blood cell count so a CT chest with contrast was ordered. The CT chest showed a large mediastinal and right hilar mass measuring 10.5 x 9.2 x 8.2 cm that is likely malignant and causing extensive postobstructive pneumonia of the right lung. The mass is compressing on the superior vena cava, encasing the right pulmonary artery and segmental pulmonary arteries as well as encasing and occluding the distal right bronchus and segmental bronchi. 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 #Normocytic anemia #Essential hypertension #History of stroke #History of hepatitis C infection #Left pulmonary mass felt to be benign #Recent right clavicular fracture #History of tobacco use disorder with approximately 89-pecz-hbjo smoking history Plan -Transition to cefepime given the fevers overnight and increase in white blood cell count. -Monitor for recurrent fevers and follow WBC. -Awaiting patient's decision on how to approach lung mass. -Follow blood cultures x2: NGTD -DuoNebs every 6 hours and albuterol nebs as needed. -Analgesics as needed for pain at right clavicle. -Follow sodium level. -Continue home Plavix and Keppra, holding home losartan for now. -DVT prophylaxis: Lovenox -CODE STATUS: Full -Disposition: TBD Time Spent With Patient Time: Total time spent is greater than 50% in coordination of care (as documented) at patient's floor/unit and/or counseling patient: QUALITY VTE Deep Vein Thrombosis/Pulmonary Embolism Present on Admission: No
[2022-08-16] MEDS ORDERED: HYDROcodone/APAP 5/325MG TABLET PO PRN (14:07)
[2022-08-16] MEDS ORDERED: HYDROmorphone 0.5 MG/0.5 ML SYRINGE IV PRN (14:07)
[2022-08-16] MEDS ORDERED: KETOROLAC 15 MG/ML VIAL IV PRN (14:11)
[2022-08-16] MEDS: SENNOSIDES 1 TABLET PO SCH (22:03)
[2022-08-17] MEDS: IPRATROPIUM/ALBUTEROL 3 ML AMPUL.NEB NEB SCH ×2 (01:19→06:58)
[2022-08-17] MEDS: CEFEPIME 2 GM VIAL IV SCH (05:46)
[2022-08-17] MEDS: 0.9 % SODIUM CHLORIDE 10 ML SYRINGE IV SCH (05:47)
[2022-08-17 06:31] LABS: Basophils # (Auto) 0.05 K/mcL (0.00-0.30); Basophils % (Auto) 0.3 % (0.0-2.0); Eosinophils # (Auto) 0.41 K/mcL (0.00-0.70); Eosinophils % (Auto) 2.7 % (0.0-7.0); Hematocrit 28.6 % (40.1-51.0); Hemoglobin 9.4 g/dL (13.7-17.5); Lymphocytes # (Auto) 1.16 K/mcL (1.50-4.80); Lymphocytes % (Auto) 7.7 % (15.5-49.0); Mean Cell Volume 85.4 fL (80.0-100.0); Mean Corpuscular HGB Conc 32.9 g/dL (31.0-36.0); Mean Platelet Volume 10.2 fL (8.8-12.5); Monocytes # (Auto) 1.48 K/mcL (0.10-0.90); Monocytes % (Auto) 9.9 % (1.0-12.0); Neutrophils % (Auto) 78.3 % (38.0-78.0); Platelet Count 492 K/mcL (140-440); RBC 3.35 M/mcL (4.63-6.08); Red Cell Distribution Width 14.3 % (11.5-14.5)
[2022-08-17 07:16] LABS: ALT/SGPT 10 U/L (<40); AST/SGOT 19 U/L (<40); Albumin 2.7 gm/dL (3.2-5.2); Albumin/Globulin Ratio 0.8 (1.0-2.3); Alkaline Phosphatase 77 U/L (39-117); Bilirubin,Direct < 0.2 mg/dL (0-0.3); Bilirubin,Total 0.3 mg/dL (0.1-1.0); Blood Urea Nitrogen 7 mg/dL (8-23); Calcium 8.6 mg/dL (8.6-10.4); Carbon Dioxide 22 mmol/L (22-30); Chloride 93 mmol/L (96-108); Globulin 3.5 gm/dL (2.2-3.7); Glomerular Filtration Rate 136; Glucose 94 mg/dL (70-105); Lactate Dehydrogenase 203 U/L (135-225); Phosphorous 3.2 mg/dL (2.5-4.5); Triglycerides 84 mg/dL (<150); Uric Acid 1.9 mg/dL (2.5-8.0)
[2022-08-17] MEDS: CLOPIDOGREL 75 MG TABLET PO SCH (08:12)
[2022-08-17] MEDS: levETIRAcetam 500 MG TABLET PO SCH (08:12)
[2022-08-17] MEDS: DOCUSATE SODIUM 100 MG CAPSULE PO SCH (08:12)
[2022-08-17] MEDS: ENOXAPARIN 40 MG/0.4 ML SYRINGE SQ SCH (08:12)
--- NOTE | 2022-08-17 09:42 | Discharge Summary ---
Discharge Provider Provider IMPORTANT FOLLOW-UP INFORMATION FOR PCP: Patient information: Note initiated : 08/17/22 at 9:36 am Service Date, if different from initiated Date: [] Patient: Ketan Crowe 67 y/o M admitted on 08/14/22 for Cough. Chief Complaint: [] Date of admission: 08/14/22 15:37 Discharge date: 08/17/22 Primary care physician: Reese James Consults: 08/14/22 Consult to Physician [CONS] Stat Comment: Consulting Provider: Myles Norman Reason For Exam: Physician to Consult COURSE Hospital Course Hospital course: Mr. Crowe is a 67 year old male with a history of hypertension, stroke, seizure disorder, hepatitis C infection, pulmonary nodules, prior smoker with a approximately [id number] smoking history who presented to the emergency department for cough and generalized weakness. The patient says that he began to feel ill about 2 months ago then developed a productive cough, generalized weakness and subjective fevers. The patient saw his primary care provider and was prescribed clarithromycin for pneumonia. The patient's symptoms did not improve and he was told to present to the emergency department for further evaluation and management. In the emergency department, patient had a high- grade temperature, tachycardia and tachypnea. The patient was initially hypotensive in the emergency department and that responded to IV fluid. Routine blood work showed leukocytosis and hyponatremia. A chest x-ray showed diffuse right lung infiltrates consistent with pneumonia, stable benign nodule in the left midlung. The patient was given ceftriaxone and azithromycin. Hospital medicine was consulted for admission. 08/15 No significant events overnight, yesterday evening the patient's MRSA PCR was negative, PCR testing for SARS-CoV-2, influenza and RSV also negative. Patient feels better today from a respiratory standpoint. Afebrile overnight, leukocytosis improving. Lactic acidosis resolved when rechecked. Sodium level improving. Replaced potassium and magnesium. Continuing ceftriaxone and IV azithromycin today, potentially transition to oral antibiotics tomorrow. Added DuoNebs and albuterol as needed as the patient is wheezing somewhat. Discontinued IV fluid. 08/16 The patient had a fever and high-grade temps overnight as well as an increase in white blood cell count today. Antibiotic treatment for pneumonia was changed from ceftriaxone to cefepime. CT chest with contrast was performed to evaluate for reasons of treatment failure and showed a large mediastinal and right hilar mass consistent with neoplasm. There was effacement of the superior vena cava, it was narrowed but not completely excluded. There was narrowing and encasement of the right pulmonary artery and segmental pulmonary arteries, encasement and occlusion of the distal right bronchus and segmental bronchi and extensive right lung abnormality consistent with postobstructive pneumonia. CT findings were explained to the patient. He wishes to discuss the findings with his before making any care decisions. 08/17 Goals of care discussed with the patient and his . We discussed the CT chest findings which are concerning for a lung malignancy. We discussed the possibility of transferring to a higher level of care for pulmonology evaluation and management which could include an EBUS and biopsy of the mass as well as stenting of the right distal bronchus. The patient considered options carefully and decided he would rather go home. We discussed hospice options which the patient and his will consider if the patient worsens. The patient did agree to a referral to pulmonology for further evaluation. I discharged the patient on a long course of levofloxacin given postobstructive pneumonia. He has high risk of developing a recurrent pneumonia and even a long course of levofloxacin may not be sufficient therapy given the postobstructive nature of this infection. Physical exam Head: Atraumatic, normal inspection. Eyes: normal appearance, no scleral icterus. Neck: full ROM Respiratory: On room air, inspiratory and expiratory wheezes most notably in the right lung duran, no signs of respiratory distress. Cardiovascular: normal rate and rhythm, S1, S2. GI/Abdominal: Subcutaneous mildly tender erythematous nodule in the right abdomen likely in enlarged lymph node soft, nontender, no guarding. Extremities: Tenderness over right clavicle, otherwise full range of motion in all extremities. Neurological: CN II-XII intact, intact motor, intact sensation. Psychiatric: normal mood. 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 Unintentional weight loss Time Spent with Patient Time attestation: Total time spent providing and/or coordinating discharge services: Time spent: Greater than 30 minutes EXAM Constitutional Vitals: Temp Pulse Resp BP Pulse Ox O2 Del Method O2 Flow Rate 98.9 F 102 H 22 138/76 92 Room Air 0 08/17/22 08:00 08/17/22 08:00 08/17/22 08:00 08/17/22 08:00 08/17/22 08:00 08/17/22 08:00 08/16/22 13:10 Discharge Data Data Completed and Pending Labs on day of discharge: Labs from last 24 hours 08/17/22 08/17/22 08/17/22 07:16 05:18 05:18 WBC 15.0 H RBC 3.35 L Hgb 9.4 L Hct 28.6 L MCV 85.4 MCH 28.1 MCHC 32.9 RDW 14.3 Plt Count 492 H MPV 10.2 Immature Gran % (Auto) 1.1 H Neut % (Auto) 78.3 H Lymph % (Auto) 7.7 L [place] % (Auto) 9.9 Eos % (Auto) 2.7 Baso % (Auto) 0.3 Lymph # (Auto) 1.16 L [place] # (Auto) 1.48 H Eos # (Auto) 0.41 Baso # (Auto) 0.05 Immature Gran # 0.16 H Absolute Neutrophils 11.76 H Sodium 127 L Potassium 3.7 Chloride 93 L Carbon Dioxide 22 Anion Gap 12.0 BUN 7 L Creatinine 0.3 L GFR Calculation 136 Glucose 94 Uric Acid 1.9 L Calcium 8.6 Phosphorus 3.2 Magnesium 1.5 L Total Bilirubin 0.3 Direct Bilirubin < 0.2 GGT 37 AST 19 ALT 10 Alkaline Phosphatase 77 Lactate Dehydrogenase 203 Total Protein 6.2 Albumin 2.7 L Globulin 3.5 Albumin/Globulin Ratio 0.8 L Triglycerides 84 Procalcitonin 0.25 H Preliminary micro results at discharge 08/14/22 11:37 Blood Culture - Preliminary Blood 08/14/22 11:35 Blood Culture - Preliminary Blood Discharge Plan Patient/Caregiver Discharge Instructions Activity: increase activity as tolerated Diet: Regular Diet Prescriptions: New levofloxacin 750 mg tablet 750 mg PO QDAY 10 Days Qty: 10 0RF Continued levetiracetam 500 mg tablet 500 mg PO BID Qty: 180 3RF olmesartan 40 mg tablet 40 mg PO QDAY Qty: 90 3RF clopidogrel 75 mg tablet 75 mg PO QDAY Follow Up Plan Follow up with: Reese James MD [Primary Care Provider] - Pierre Machado MD [Physician] - 08/18/22 (Follow-up for right mediastinal and hilar lung mass concerning for malignancy.) Patient Disposition: Home, Self-Care Prognosis: Fair Overall status at discharge: patient is not back to baseline Discharge Orders: Discharge Order (Routine); Ordered 08/17/22 Ordered By: Myles ANNE VTE Deep Vein Thrombosis/Pulmonary Embolism Present on Admission: No
== END 2022-08-17 10:20 | disposition home or self-care (01) | DRG 871 ==
LOC: ED 11:14 → ICU 15:37
PROVIDERS: ADMIT Internal Medicine; ATTEND Internal Medicine